=== PATIENT | female | born 1975 | race Caucasian/White ===

== ENCOUNTER 2023-08-09 14:02 | Emergency (ER) | payer BC ==
[~2023-08-09] VITALS: Ht 170.2 cm; Wt 77.3 kg
[2023-08-09 14:13] VITALS: TEMP 98.2
[2023-08-09] MEDS ORDERED: Mag/Al Hydrox/Simeth Susp 30 ML CUP PO ONE (14:45)
[2023-08-09] MEDS ORDERED: LR 1,000 ML IV ONE (14:45)
[2023-08-09 15:01] LABS: BASO % 0.2 % (0.0-2.0); EOS # 0.1 K/mm3 (0.0-0.7); EOS % 0.7 % (0.0-4.0); GRAN # 11.7 K/mm3 (1.4-6.5); GRAN % 87.8 % (42.2-75.2); HEMATOCRIT 43.2 % (37.0-47.0); HEMOGLOBIN 14.7 g/dl (12.5-16.0); LYMPH # 0.6 K/mm3 (1.2-3.4); LYMPH % 4.7 % (20.0-51.0); MEAN CELL VOLUME 91 fl (80.0-100.0); MEAN CORPUSCULAR HEMOGLOBIN 31 pg (27-31); MEAN CORPUSCULAR HGB CONC 34 g/dl (33.0-37.0); MEAN PLATELET VOLUME 9.7 fl (7.4-10.4); MONO # 0.8 K/mm3 (0.1-0.6); MONO % 6.1 % (1.7-9.3); PLATELET COUNT 304 K/mm3 (130-400); RED BLOOD COUNT 4.76 M/mm3 (4.10-5.30); REDCELL DISTRIBUTION WIDTH-CV 12.1 % (11.5-14.5)
[2023-08-09 15:54] LABS: ALBUMIN 4.1 g/dL (3.5-5.0); BILIRUBIN,TOTAL 2.5 mg/dL (0.2-1.2); CALCIUM 9.9 mg/dL (8.4-10.2); CREATININE, serum 0.86 mg/dL (0.57-1.11); POTASSIUM 3.9 mEq/L (3.5-4.5)
[2023-08-09 18:35] VITALS: BP 138/72; PULSE 70
== END 2023-08-09 18:35 | disposition home or self-care (01) ==
LOC: COL.ER 14:02
PROVIDERS: Emergency Medicine
DX: R10.13 Epigastric pain (principal); D72.829 Elevated white blood cell count, unspecified; I44.7 Left bundle-branch block, unspecified
CPT/HCPCS: J7120